=== PATIENT | male | born 1975 | race Asian ===

== ENCOUNTER 2023-06-11 12:09 | Emergency (ER) | payer OTHER ==
[~2023-06-11] VITALS: Ht 167.6 cm; Wt 75.0 kg
[2023-06-11 12:16] VITALS: BP 125/83; PULSE 63; RESP 18; TEMP 98.3
[2023-06-11] MEDS ORDERED: IBUPROFEN 600 MG TABLET PO ONE (13:45)
== END 2023-06-11 14:04 | disposition home or self-care (01) ==
LOC: EMS 12:12
DX: M79.662 Pain in left lower leg (principal)
CPT/HCPCS: 99282; Z7502; Z7610